=== PATIENT | female | born 1940 | race Caucasian/White ===

== ENCOUNTER 2021-06-16 13:26 | Emergency (ER) | payer OTHER ==
[~2021-06-16] VITALS: Ht 167.6 cm; Wt 74.8 kg
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
--- NOTE | 2021-06-16 13:36 | NUR ---
DR RIVERA AT BEDSIDE
[2021-06-16] MEDS ORDERED: EZET10TA32 PO (13:37)
[2021-06-16] MEDS ORDERED: LEVO88TA5 PO (13:37)
[2021-06-16] MEDS ORDERED: LOSA1TAB39 PO (13:37)
--- NOTE | 2021-06-16 14:30 | NUR ---
SALINE LOCK ESTABLISHED, BLOOD DRAWN AND SENT TO LAB
[2021-06-16 14:51] LABS: BASOPHILS % (AUTO) 0.5 % (0.0-2.0); EOSINOPHILS % (AUTO) 2.3 % (0.0-6.0); HEMATOCRIT 37 % (33-45); LYMPHOCYTES # (AUTO) 1.7 K/uL (0.8-4.8); LYMPHOCYTES % (AUTO) 20.9 % (20.0-44.0); MEAN CORPUSCULAR HGB CONC 33 g/dl (31.0-36.0); MEAN CORPUSCULAR VOLUME 92 fL (82-100); MONOCYTES # (AUTO) 0.6 K/uL (0.1-1.30); MONOCYTES % (AUTO) 7.5 % (2.0-12.0); NEUTROPHILS # (AUTO) 5.7 K/uL (1.8-8.9); NEUTROPHILS % (AUTO) 68.8 % (43.0-81.0); PLATELET COUNT (AUTO) 275 K/uL (150-450); RED BLOOD CELL COUNT(AUTO) 3.97 MIL/uL (4.0-5.2); WHITE BLOOD COUNT (AUTO) 8.2 K/uL (4.3-11.0)
[2021-06-16 15:21] LABS: CALCIUM, SERUM 9.3 mg/dL (8.5-10.1); CARBON DIOXIDE 23 mmol/L (21-32); CHLORIDE 103 mmol/L (98-107); CREATININE 1.1 mg/dL (0.6-1.3); GLUCOSE 101 mg/dL (74-106); POTASSIUM 3.1 mmol/L (3.5-5.1); SODIUM SERUM 136 mmol/L (136-145); UREA NITROGEN, BLOOD 22 mg/dL (7-18)
[2021-06-16] MEDS ORDERED: POTASSIUM CHLORIDE 20 MEQ TAB.PRT.SR PO ONE ×2 (15:30→15:42)
[2021-06-16] MEDS ORDERED: IV NS 0.9% 250 ML IV ONE (15:33)
[2021-06-16] MEDS ORDERED: IOHEXOL-300 100 ML VIAL IV ONE (15:33)
[2021-06-16] MEDS ORDERED: CT SWABBABLE VALVE TRANS SET 1 EA INFUS.SET MC ONE (15:33)
--- NOTE | 2021-06-16 15:43 | NUR ---
WHEELED OUT VIA RNEY FOR CT SCAN
--- NOTE | 2021-06-16 16:36 | NUR ---
CALLED [facility] [phone] FOR READ.
[2021-06-16] MEDS ORDERED: HYDROCODONE/APAP 5/325MG TABLET ONE (16:59)
[2021-06-16] MEDS ORDERED: HYDROCODONE/APAP 5/325MG TABLET PO ONE (17:00)
--- NOTE | 2021-06-16 17:00 | NUR ---
PATIENT VERBALLY AGREED TO PROVIDE HEALTH INFORMATION TO DAUGHTER (GHASSAN). UPDATED DAUGHTER WITH PATIENT STATUS. PHONE: [phone]
--- NOTE | 2021-06-16 17:22 | NUR ---
DR. OLVERA FROM RADIOLOGY SPEAKING WITH FANNIE BERRIOS.
--- NOTE | 2021-06-16 17:33 | NUR ---
CALLED DR. SOSA [phone] SPEAKING WITH ER .
--- NOTE | 2021-06-16 18:20 | NUR ---
MADE FAMILY AWARE PATIENT IS BEING DISCHARGED. ETA 1900.
[2021-06-16] MEDS ORDERED: HYDR-4275 PO (18:53)
--- NOTE | 2021-06-16 19:20 | NUR ---
Provided with incentive spirometer. Instructed how to use, patient verbalized understanding. IV removed. Catheter intact and site benign. Pressure and 4x4 applied to site. No bleeding noted.Patient discharged to home in stable condition. Written and verbal after care instructions given. Patient verbalizes understanding of instruction.
[2021-06-16 19:22] VITALS: BP 151/98
[2021-06-19] MEDS ORDERED: MELO15TA13 PO (13:11)
[2021-06-19] MEDS ORDERED: AZIT250T PO (13:11)
[2021-06-19] MEDS ORDERED: LIDO30AD10 TP (13:11)
== END 2021-06-16 19:22 | disposition home or self-care (01) ==
LOC: ER 13:29
DX: S22.43XA Multiple fractures of ribs, bilateral, initial encounter for closed fracture (principal); S22.22XA Fracture of body of sternum, initial encounter for closed fracture; I10 Essential (primary) hypertension; Z79.891 Long term (current) use of opiate analgesic; Z79.899 Other long term (current) drug therapy; V49.50XA Passenger injured in collision with unspecified motor vehicles in traffic accident, initial encounter; Y93.89 Activity, other specified; Y92.89 Other specified places as the place of occurrence of the external cause; Y99.8 Other external cause status
CPT/HCPCS: 36415; 71045; 71260; 80048; 84484 ×2; 85025; 85730; 86850; 93005 ×3; 99285; J7050; Q9967

== ENCOUNTER 2021-06-17 00:23 | Inpatient (IN) | payer OTHER ==
[~2021-06-17] VITALS: Ht 167.6 cm; Wt 74.8 kg
[~2021-06-17 00:23] MED LIST: EZET10TA32 PO; HYDR-4275 PO; LEVO88TA5 PO; LOSA1TAB39 PO
--- NOTE | 2021-06-17 00:35 | NUR ---
BIBRA 889 FOR C/O WEAKNESS AND AN EPISODE OF VOMITING X 1 DAY. PATIENT ALERT AND ORIENTED X3. AMBULATORY WITH NON LABORED BREATHING. PLACED IN BED 06 ON MONITOR AND POX.
[2021-06-17] MEDS ORDERED: ONDANSETRON HCL/PF 4 MG/2 ML VIAL ONE ×2 (00:47→02:33)
[2021-06-17] MEDS ORDERED: HYDROMORPHONE 1 MG/1 ML DISP.SYRIN ONE (00:47)
--- NOTE | 2021-06-17 00:56 | NUR ---
ABDULAZIZ DONE AND SENT TO LAB
--- NOTE | 2021-06-17 00:56 | NUR ---
BLOOD COLLECTED AND SENT TO LAB
--- NOTE | 2021-06-17 00:59 | NUR ---
MRSA SWAB COLLECTED AND SENT TO LAB. PATIENT'S BELONGINGS LIST DONE.
[2021-06-17] MEDS ORDERED: ONDANSETRON HCL/PF 4 MG/2 ML VIAL IVP ONE (01:00)
[2021-06-17] MEDS ORDERED: HYDROMORPHONE INJ 2 MG/ML DISP.SYRIN IV ONE (01:00)
[2021-06-17] MEDS ORDERED: IV NS 0.9% 500 ML BAG IV ONE (01:00)
--- NOTE | 2021-06-17 01:24 | NUR ---
TEODORA FERRELL: [phone]
[2021-06-17 01:25] LABS: BASOPHILS % (AUTO) 0.3 % (0.0-2.0); EOSINOPHILS % (AUTO) 0.1 % (0.0-6.0); HEMATOCRIT 37 % (33-45); HEMOGLOBIN 12.4 g/dL (11.5-14.8); LYMPHOCYTES # (AUTO) 1.2 K/uL (0.8-4.8); LYMPHOCYTES % (AUTO) 12.5 % (20.0-44.0); MEAN CORPUSCULAR HGB CONC 34 g/dl (31.0-36.0); MEAN CORPUSCULAR VOLUME 91 fL (82-100); MONOCYTES # (AUTO) 0.7 K/uL (0.1-1.30); MONOCYTES % (AUTO) 6.8 % (2.0-12.0); NEUTROPHILS # (AUTO) 7.8 K/uL (1.8-8.9); NEUTROPHILS % (AUTO) 80.3 % (43.0-81.0); PLATELET COUNT (AUTO) 279 K/uL (150-450); RED BLOOD CELL COUNT(AUTO) 4.06 MIL/uL (4.0-5.2); WHITE BLOOD COUNT (AUTO) 9.7 K/uL (4.3-11.0)
[2021-06-17 01:51] LABS: CALCIUM, SERUM 8.7 mg/dL (8.5-10.1); CREATININE 1.1 mg/dL (0.6-1.3); POTASSIUM 3.3 mmol/L (3.5-5.1)
[2021-06-17] MEDS ORDERED: ONDANSETRON HCL/PF - ER 4 MG/2 ML VIAL IV ONE (03:00)
--- NOTE | 2021-06-17 04:36 | NUR ---
PT SLEEPING COMOFRTABLY BREATHING EVEN AND UNLABORED EASILY AROUSABLE TO VERBAL STIMULI. WARM BLANKET PROVIDED FOR PT COMOFORT AND ALL V/S REMAIN STABLE.
[2021-06-17] MEDS ORDERED: MORPHINE SULFATE INJ 2 MG/ML DISP.SYRIN IV PRN (05:30)
[2021-06-17] MEDS ORDERED: METOCLOPRAMIDE HCL 10 MG/2 ML VIAL IV PRN (05:30)
[2021-06-17] MEDS ORDERED: DEXTROSE 50%-WATER 50 ML DISP.SYRIN IV PRN (05:30)
[2021-06-17] MEDS ORDERED: MAG HYDROX/AL HYDROX/SIMETH 30 ML UDC PO PRN (05:30)
[2021-06-17] MEDS ORDERED: MAGNESIUM HYDROXIDE 30 ML UDC PO PRN (05:30)
[2021-06-17] MEDS ORDERED: ONDANSETRON HCL/PF 4 MG/2 ML VIAL IVP PRN (05:30)
[2021-06-17] MEDS ORDERED: HYDROCODONE/APAP 5/325MG TABLET PO PRN (05:30)
[2021-06-17] MEDS ORDERED: Z GUARD REMEDY 4 OZ OINT TP PRN (05:30)
--- NOTE | 2021-06-17 06:30 | NUR ---
TRANSFERRING PT TO 306-2 PER ACLS PROTOCOL.
--- NOTE | 2021-06-17 06:30 | NUR ---
REPORT GIVEN TO JOHNY ALEJANDRO
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
[2021-06-17] MEDS: BLOOD SUGAR DIAGNOSTIC 1 EACH STRIP IN SCH ×4 (08:04→22:00)
[2021-06-17] MEDS: AZITHROMYCIN 250 MG TABLET PO SCH (08:08)
[2021-06-17] MEDS: PANTOPRAZOLE 40 MG TABLET.DR PO SCH (08:08)
--- NOTE | 2021-06-17 08:09 | NUR ---
COLLECTIONS PROFESSIONAL NOTES PATIENT IN BED COMPLAINING OF NAUSEA; REQUESTING PRN MEDICATION. PRN ZOFRAN ADMINISTERED. WILL REASSESS.
[2021-06-17 08:15] VITALS: BP 113/72
[2021-06-17 08:43] LABS: ALBUMIN 3.4 g/dL (3.4-5.0); BILIRUBIN,DIRECT 0.1 mg/dL (0.0-0.2); BILIRUBIN,TOTAL 0.4 mg/dL (0.2-1.0); TOTAL PROTEIN, SERUM 7.2 g/dL (6.4-8.2)
[2021-06-17] MEDS: ENOXAPARIN SODIUM 40 MG/0.4 ML DISP.SYRIN SQ SCH (10:01)
[2021-06-17] MEDS ORDERED: POTASSIUM CHLORIDE 20 MEQ TAB.PRT.SR PO SCH (11:00)
[2021-06-17] MEDS: ACETAMINOPHEN 325 MG TABLET PO PRN ×2 (12:36→20:41)
--- NOTE | 2021-06-17 12:36 | NUR ---
SEED CORN MANAGER PRODUCTION NOTES PATIENT COMPLAINING OF STERNUM AREA PAIN 4 OUT OF 10; REQUESTING PAIN MEDICATION. PRN TYLENOL ADMINISTERED. WILL REASSESS.
[2021-06-17 15:53] VITALS: BP 130/78
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
--- NOTE | 2021-06-17 19:36 | NUR ---
CARDROOM PLASTIC CARD GRADER OPENING NOTES; RECEIVED PATIENT AWAKE IN BED, BED IN LOW POSTION, CALL LIGHTS WITHIN REACH, NO COMPLAIN OF PAIN AND DISCOMFORT AT THIS TIME, PATIENT IS A/OX4 SERBIAN SPEAKING, AMBULATORY WITH ASSIST, ON TELE MONITORING ST-104, NO SYMPTOMS NOTED ON O2 INHALATION AT 3LPM NO SOB WAS OBSERVED, PATIENT KEPT CLEAN AND DRY ALL NEEDS MET WILL CONTINUE TO MONITOR.
[2021-06-17 20:00] VITALS: BP 108/65
[2021-06-17 20:53] VITALS: BP 108/65
[2021-06-17 20:55] VITALS: BP 108/65
--- NOTE | 2021-06-17 22:20 | NUR ---
RN NOTES: BS-91 NO INSULIN GIVEN PER SLIDING SCALE- OUT OF PARAMETER
[2021-06-18] VITALS: BP 126/77
[2021-06-18 04:00] VITALS: BP 127/84
[2021-06-18 05:12] VITALS: BP 127/84
[2021-06-18 05:54] LABS: BASOPHILS % (AUTO) 0.4 % (0.0-2.0); EOSINOPHILS % (AUTO) 1.5 % (0.0-6.0); HEMATOCRIT 34 % (33-45); HEMOGLOBIN 11.4 g/dL (11.5-14.8); LYMPHOCYTES # (AUTO) 2.6 K/uL (0.8-4.8); LYMPHOCYTES % (AUTO) 25.1 % (20.0-44.0); MEAN CORPUSCULAR HGB CONC 34 g/dl (31.0-36.0); MEAN CORPUSCULAR VOLUME 90 fL (82-100); MONOCYTES % (AUTO) 9.9 % (2.0-12.0); NEUTROPHILS # (AUTO) 6.5 K/uL (1.8-8.9); NEUTROPHILS % (AUTO) 63.1 % (43.0-81.0); PLATELET COUNT (AUTO) 289 K/uL (150-450); WHITE BLOOD COUNT (AUTO) 10.3 K/uL (4.3-11.0)
[2021-06-18 06:16] LABS: CALCIUM, SERUM 8.7 mg/dL (8.5-10.1); CARBON DIOXIDE 22 mmol/L (21-32); CHLORIDE 105 mmol/L (98-107); CREATININE 1.1 mg/dL (0.6-1.3); GLUCOSE 113 mg/dL (74-106); MAGNESIUM 2.3 mg/dL (1.8-2.4); PHOSPHORUS 3.2 mg/dL (2.5-4.9); POTASSIUM 3.4 mmol/L (3.5-5.1); SODIUM SERUM 136 mmol/L (136-145); UREA NITROGEN, BLOOD 19 mg/dL (7-18)
[2021-06-18 06:28] LABS: THYROID STIMULATING HORMONE 12.499 uIU/mL (0.358-3.74)
--- NOTE | 2021-06-18 07:16 | NUR ---
PERSONAL BANKING REPRESENTATIVE CLOSING NOTES: PATIENT SLEEP IN BED COMFORTABLY, BED IN LOW POSITION, CALL LIGHTS WITHIN REACH, NO COMPLAIN OF PAIN AND DISCOMFORT AT THIS TIME,, PATIENT ON O2 INHALATION AT 3LPM SATURATING WELL, IWTH IV LINE AT RFA#20 SL ON TELE [id number], PATIENT KEPT CLEAN AND DRY ALL NEEDSMET ENDORSE TO INCOMING SHIFT.
--- NOTE | 2021-06-18 07:23 | NUR ---
HAT DESIGNER OPENING NOTES RECEIVED PATIENT AWAKE IN BED. A/O X4. PATIENT ON OXYGEN THERAPY AT 3 LPM VIA NASAL CANNULA; WITH REGULAR AND UNLABORED BREATHING. NO SIGNS OF DISTRESS NOTED DENIES OF NAUSEA AND VOMITING, AT THIS TIME. IV ACCESS RFA #20 SL. IV ACCESS PATENT AND INTACT. PATIENT ON TELE MONITOR. SAFETY PRECAUTIONS IN PLACE; BED IN LOW POSITION AND LOCKED, RAILS UP X2, CALL LIGHT WITHIN REACH. WILL CONTINUE TO MONITOR
[2021-06-18] MEDS: BLOOD SUGAR DIAGNOSTIC 1 EACH STRIP IN SCH ×5 (07:38→21:53)
[2021-06-18] MEDS: AZITHROMYCIN 250 MG TABLET PO SCH (08:07)
[2021-06-18] MEDS: PANTOPRAZOLE 40 MG TABLET.DR PO SCH (08:07)
[2021-06-18] MEDS: ENOXAPARIN SODIUM 40 MG/0.4 ML DISP.SYRIN SQ SCH (08:11)
[2021-06-18] MEDS ORDERED: POTASSIUM CHLORIDE 20 MEQ TAB.PRT.SR PO ONE (11:00)
[2021-06-18] MEDS: INSULIN REGULAR, HUMAN 100 UNIT/ML 3 ML VIAL SQ PRN ×2 (11:42→21:53)
[2021-06-18] MEDS: ACETAMINOPHEN 325 MG TABLET PO PRN (12:14)
[2021-06-18] MEDS ORDERED: ACETAMINOPHEN W/ CODEINE#3 1 EA TABLET PO PRN (15:30)
[2021-06-18] MEDS ORDERED: IOHEXOL-350 100 ML VIAL IV ONE (15:38)
[2021-06-18] MEDS ORDERED: IV NS 0.9% 250 ML IV ONE (15:38)
[2021-06-18] MEDS ORDERED: CT SWABBABLE VALVE TRANS SET 1 EA INFUS.SET MC ONE (15:38)
[2021-06-18] MEDS: LIDOCAINE 5% (PATCH) 1 EA PATCH TP SCH (16:44)
[2021-06-18] MEDS: KETOROLAC TROMETHAMINE INJ 30 MG/ML VIAL IV SCH ×2 (16:44→21:46)
--- NOTE | 2021-06-18 16:58 | NUR ---
RN NOTE PATIENT REFUSED ACCUCHECK STATED IT WAS ALREADY DONE. EXPLAINED RISK AND BENEFITS, PATIENT STATED OKAY FOR LATER.
--- NOTE | 2021-06-18 18:20 | NUR ---
MANAGER BIOLOGICS CLOSING NOTES PATIENT AWAKE IN BED. A/O X4. PATIENT ON ROOM AIR WITH REGULAR AND UNLABORED BREATHING. NO SIGNS OF DISTRESS NOTED DENIES OF NAUSEA AND VOMITING, AT THIS TIME. IV ACCESS RFA #20 SL. IV ACCESS PATENT AND INTACT. PATIENT ON TELE MONITOR. ALL MEDICATIONS GIVEN ORDERED. SAFETY PRECAUTIONS IN PLACE; BED IN LOW POSITION AND LOCKED, RAILS UP X2, CALL LIGHT WITHIN REACH. WILL ENDORSE TO ONCOMING SHIFT
--- NOTE | 2021-06-18 19:15 | NUR ---
RESEARCH DIRECTOR OPENING NOTES: RECEIVED PATIENT RESTING IN BED, AWAKE, A/O X4. NO S/S OF DISTRESS NOTED. NO COMPLAIN OF PAIN. CALL LIGHT WITHIN REACH. BED IN LOWEST AND LOCKED POSITION.
[2021-06-18 20:00] VITALS: BP 124/64
--- NOTE | 2021-06-18 21:53 | NUR ---
blood sugar checked=95. no insulin needed.
[2021-06-19] VITALS (10 sets, daily range): BP systolic 98–144; BP diastolic 55–86
[2021-06-19] MEDS: KETOROLAC TROMETHAMINE INJ 30 MG/ML VIAL IV SCH ×2 (02:14→09:03)
[2021-06-19 06:23] LABS: BASOPHILS # (AUTO) 0.1 K/uL (0.0-0.2); BASOPHILS % (AUTO) 0.8 % (0.0-2.0); EOSINOPHILS % (AUTO) 3.6 % (0.0-6.0); HEMATOCRIT 33 % (33-45); HEMOGLOBIN 11.3 g/dL (11.5-14.8); LYMPHOCYTES # (AUTO) 2.4 K/uL (0.8-4.8); LYMPHOCYTES % (AUTO) 29.1 % (20.0-44.0); MEAN CORPUSCULAR HGB CONC 34 g/dl (31.0-36.0); MEAN CORPUSCULAR VOLUME 90 fL (82-100); MONOCYTES # (AUTO) 0.8 K/uL (0.1-1.30); MONOCYTES % (AUTO) 9.8 % (2.0-12.0); NEUTROPHILS # (AUTO) 4.6 K/uL (1.8-8.9); NEUTROPHILS % (AUTO) 56.7 % (43.0-81.0); PLATELET COUNT (AUTO) 276 K/uL (150-450); RED BLOOD CELL COUNT(AUTO) 3.69 MIL/uL (4.0-5.2); WHITE BLOOD COUNT (AUTO) 8.2 K/uL (4.3-11.0)
[2021-06-19] MEDS: BLOOD SUGAR DIAGNOSTIC 1 EACH STRIP IN SCH ×2 (06:27→11:28)
[2021-06-19] MEDS: INSULIN REGULAR, HUMAN 100 UNIT/ML 3 ML VIAL SQ PRN (06:28)
[2021-06-19 06:35] LABS: CALCIUM, SERUM 8.9 mg/dL (8.5-10.1); CREATININE 1.1 mg/dL (0.6-1.3); MAGNESIUM 2.6 mg/dL (1.8-2.4); POTASSIUM 3.6 mmol/L (3.5-5.1)
[2021-06-19 07:00] LABS: PHOSPHORUS 3.5 mg/dL (2.5-4.9)
--- NOTE | 2021-06-19 07:22 | NUR ---
CARBON SEQUESTRATION PLANT OPERATOR NOTES PT IN BED, ASLEEP, EASY TO AROUSE, NO SIGN OF PAIN, NOT IN DISTRESS, CALL LIGHT WITHIN REACH, KEPT COAL HAULER BED.
[2021-06-19] MEDS: AZITHROMYCIN 250 MG TABLET PO SCH (08:02)
[2021-06-19] MEDS: PANTOPRAZOLE 40 MG TABLET.DR PO SCH (08:02)
[2021-06-19] MEDS: ENOXAPARIN SODIUM 40 MG/0.4 ML DISP.SYRIN SQ SCH (08:08)
[2021-06-19] MEDS ORDERED: LIDO30AD10 TP (13:11)
[2021-06-19] MEDS ORDERED: MELO15TA13 PO (13:11)
[2021-06-19] MEDS ORDERED: AZIT250T PO (13:11)
[2021-06-19] MEDS: LIDOCAINE 5% (PATCH) 1 EA PATCH TP SCH (14:15)
[2021-06-19] MEDS: ACETAMINOPHEN 325 MG TABLET PO PRN (14:16)
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
[2021-06-19] MEDS ORDERED: IV NS 0.9% 500 ML IV ONE (15:30)
--- NOTE | 2021-06-19 15:30 | NUR ---
DREDGE MATE NOTES DR. CASTELLANO ORDERED TO GIVE NS 500ML BOLUS X 1, THEN OBSERVE PT FOR 30 MINUTES, WILL CONTINUE TO MONITOR.
--- NOTE | 2021-06-19 18:19 | NUR ---
CASINO BANKER NOTES PT AWAKE, SITTING IN BED, NO COMPLAINT OF PAIN, NOT IN DISTRESS, NS BOLUS COMPLETED, VS TAKEN AND RECORDED, BP 126/74 HR 86, ON ROOM AIR WITH O2 SAT OF 98%, PT STATES SHE IS FEELING A LOT BETTER, SLOWLY ASSISTED TO WHEELCHAIR, ASSISTED TO HOSPITAL LOBBY, ASSISTED TO CAR, LEFT WITH DAUGHTER IN STABLE CONDITION.
== END 2021-06-19 18:15 | disposition home or self-care (01) | DRG 48 ==
LOC: ER 00:25 → TELE 05:11
PROVIDERS: ATTEND Nurse Practitioner Acute Care
DX: G90.8 Other disorders of autonomic nervous system (principal); S22.22XA Fracture of body of sternum, initial encounter for closed fracture; S22.42XA Multiple fractures of ribs, left side, initial encounter for closed fracture; E03.9 Hypothyroidism, unspecified; E78.5 Hyperlipidemia, unspecified; I10 Essential (primary) hypertension; V49.9XXA Car occupant (driver) (passenger) injured in unspecified traffic accident, initial encounter; Y92.410 Unspecified street and highway as the place of occurrence of the external cause; J98.11 Atelectasis; E87.6 Hypokalemia; Z79.890 Hormone replacement therapy; Z20.822 Contact with and (suspected) exposure to COVID-19
CPT/HCPCS: 36415; 71045-TC; 80048-TC; 80076-TC; 82247-TC; 82248-TC; 82962-TC; 83735-TC; 84100-TC; 84443-TC; 84484-TC; 85025-TC; 85730-TC; 87081-TC; 93307-TC; 97116-TC; 97530-TC; C9803; G0378; J1170; J1650; J1815; J1885; J2405; J7040; J7050; Q9967